=== PATIENT | male | born 1995 | race African-American/Black ===

== ENCOUNTER 2019-07-17 12:00 | Emergency (ER) | payer OTHER, SELFPAY ==
[2019-07-17 12:07] VITALS: BP 125/75; PULSE 74; RESP 17; TEMP 36.7; O2SAT 98
[2019-07-17 12:10] VITALS: PULSE 74
--- NOTE | 2019-07-17 12:13 | DI.RAD.S_ITS ---
PROCEDURE: XR TOE LT MIN 2V INDICATIONS: 1st toe pain, s/p hyperflexed yesterday TECHNIQUE: 3 views of the left first toe(s) acquired. COMPARISON: None. FINDINGS: Bones: No fractures or dislocations. No suspicious bony lesions. Soft tissues: No suspicious soft tissue densities. IMPRESSION: Left first toe without acute osseous abnormalities or malalignment. If there are persistent symptoms or clinical suspicion for pathology, then repeat radiographs or advanced imaging (CT, MRI or bone scan) should be considered for further evaluation. Dictated by: Luis Alberto Pham M.D. on 07/17/2019 at 12:50 Approved by: Luis Alberto Pham M.D. on 07/17/2019 at 12:51
--- NOTE | 2019-07-17 12:15 | ED.EXTPRO ---
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 He states had injured yesterday by hyperflexing the affected toe during PT session. Patient reports the area has been mildly a swollen and tenderness to palpate. Pain increases with movement and weight-bearing. Patient has been using ice pack at home for swelling and this helped a bit with swelling and pain. Related Data Home Medications Medication Instructions Recorded Confirmed No Known Home Medications 07/17/19 07/17/19 Allergies Allergy/AdvReac Type Severity Reaction Status Date / Time No Known Drug Allergies Allergy Verified 07/17/19 12:09 Review of Systems <SILAS Marmolejo - Last Filed: 07/17/19 13:49> Review of Systems Narrative: General: Denies fever, chills, fatigue, malaise, sweats. HEENT: Denies sinus pain, ear pain, sore throat, difficulty swallowing, dizziness. Respiratory: Denies dyspnea, cough, wheezing, hemoptysis, sputum. Cardiovascular: Denies chest pain, palpitations, orthopnea, edema. Gastrointestinal: Denies nausea, vomiting, abdominal pain, diarrhea, constipation, melena. : Denies dysuria, frequency, incontinence, hematuria, urinary retention. Musculoskeletal: See HPI Skin: Denies rash, skin lesions, or other. Neurologic: Denies weakness, headache, numbness, change in speech, confusion, seizures, incoordination. Psychiatric: No concerning psychosocial issues. 12-point review of systems is negative except for those stated above. Musculoskeletal Musculoskeletal: Reports as per HPI, Reports joint swelling, Reports limited range of motion and Reports stiffness PFSH <SILAS Marmolejo - Last Filed: 07/17/19 13:49> Medical History Healthy adult (Acute) Social History Smoking Status: Never smoker Social History (Updated 07/17/19 @ 12:19 by SILAS Marmolejo) Smoking Status: Never smoker Smokeless tobacco user: other substance use type: does not use Exam <SILAS Marmolejo - Last Filed: 07/17/19 13:49> Narrative Exam Narrative: GEN: Alert, oriented x 3, well appearing and nourished, and in no acute distress. Head: Normal cephalic, atraumatic. No scalp or temporal tenderness, palpable mass or rash. EYES: Pupils are equal, round, and reactive to light and accommodation. Extraocular muscles are intact bilaterally. There is no subconjunctival hemorrhage, exudate and sclera non-icteric. ENT: Bilateral auditory canals and tympanic membranes clear. Hearing grossly intact. Nose without bleeding, purulent discharge or deviation. Facial sinuses nontender to palpate. Mucous membrane moist, no mucosal lesion. Throat without erythema, tonsillar hypertrophy or exudate. Uvula in midline, airway patent. Neck: Trachea in midline. No JVD, non-tender without lymphadenopathy. No masses or thyroid megaly. Supple, non-tender and no meningeal signs. CARDIAC: Normal regular rate and rhythm without murmurs, gallops, or rubs. No chest wall tenderness. No peripheral edema, cyanosis or pallor. Capillary refill is less than 2 seconds. RESPIRATORY: Lungs are cleat to auscultate bilaterally. No cough, wheezes, rales, or rhonchi. No stridor, respiratory distress, increase work of breathing, or accessary muscle used. ABD: Abdomen soft, nontender and non-distended. No guarding or rebound tenderness to palpate. Bowel sounds are normal in all 4 quadrants. There is no palpable masses or organomegaly. SKIN: Warm, dry, normal color for patient. No erythema, lesions or rash over visible areas. BACK: Nontender without deformity or crepitance. No flank tenderness. NEUROLOGICAL: Alert and oriented to place, time and person. Sensation and motor function intact bilaterally. No facial droops, dysphasia. PSYCHIATRIC: Good judgement and reason, without hallucinations, abnormal affect or abnormal behaviors during the examination. Patient is not suicidal. Initial Vital Signs Initial Vital Signs: Vital Signs Temperature 98.0 F 07/17/19 12:07 Pulse Rate 74 07/17/19 12:07 Respiratory Rate 17 07/17/19 12:07 Blood Pressure 125/75 07/17/19 12:07 Pulse Oximetry 98 07/17/19 12:07 Extrem Left lower extremity: foot Details: normal capillary refill, tenderness Location: of the great toe Location: at the MTP joint, abnormal ROM of toe Details: pain with active ROM Location: of the great toe and pain with passive ROM Location: of the great toe, edema Location: of the great toe and vascular exam Details: dorsalis pedis pulse present; no unusual warmth, no ecchymosis and no crepitus <Zoe Marshall DO - Last Filed: 07/18/19 08:07> Initial Vital Signs Initial Vital Signs: Vital Signs Temperature 98.0 F 07/17/19 12:07 Pulse Rate 74 07/17/19 12:07 Respiratory Rate 17 07/17/19 12:07 Blood Pressure 125/75 07/17/19 12:07 Pulse Oximetry 98 07/17/19 12:07 Procedures <SILAS Marmolejo - Last Filed: 07/17/19 13:49> Orthopedic Splinting/Casting Injury #1: Side: left Lower Extremity Injury Location: toe (great toe) Lower Extremity Immobilizer: keren tape Course <SILAS Marmolejo - Last Filed: 07/17/19 13:49> Orders Ordered: Discontinued Medications Ibuprofen (Advil) 800 mg PO NOW ONE Stop: 07/17/19 12:14 Last Admin: 07/17/19 12:44 Dose: 800 mg Documented by: NIKO Vital Signs Vital signs: Vital Signs - 8 hr 07/17/19 12:07 07/17/19 12:10 07/17/19 13:00 Temperature 98.0 F Pulse Rate 74 67 Pulse Rate [Left Dorsalis Pedis] 74 Respiratory Rate 17 15 Blood Pressure 125/75 Blood Pressure [Left Arm] 154/106 H Pulse Oximetry 98 98 <Zoe Marshall DO - Last Filed: 07/18/19 08:07> Orders Ordered: Discontinued Medications Ibuprofen (Advil) 800 mg PO NOW ONE Stop: 07/17/19 12:14 Last Admin: 07/17/19 12:44 Dose: 800 mg Documented by: NIKO Vital Signs Vital signs: Vital Signs - 8 hr 07/17/19 12:07 07/17/19 12:10 07/17/19 13:00 Temperature 98.0 F Pulse Rate 74 67 Pulse Rate [Left Dorsalis Pedis] 74 Respiratory Rate 17 15 Blood Pressure 125/75 Blood Pressure [Left Arm] 154/106 H Pulse Oximetry 98 98 [facility] - Extremity (Nontraumatic) <SILAS Marmolejo - Last Filed: 07/17/19 13:49> Differential Diagnosis Differential diagnosis: Likely other (contusion/sprain to L great toe, fracture of L great toe) Medical Records Attestation: I reviewed the patient's medical records. Imaging Data XR- Great toe L: Attestation: I personally reviewed and interpreted this imaging study as follows: Radiologist's impression: [address] [address] XRay Report Signed Patient: Mohinder Livingston [facility]#: [id number] : 1995Acct:[id number] Age/Sex: 23 / MDate of Service: 07/17/19 Loc: ED Accession Number: [id number] Procedure: XR toe LT min 2V Ordering Provider: Jones Brandt PROCEDURE: XR TOE LT MIN 2V INDICATIONS: 1st toe pain, s/p hyperflexed yesterday TECHNIQUE: 3 views of the left first toe(s) acquired. COMPARISON: None. FINDINGS: Bones: No fractures or dislocations. No suspicious bony lesions. Soft tissues: No suspicious soft tissue densities. IMPRESSION: Left first toe without acute osseous abnormalities or malalignment. If there are persistent symptoms or clinical suspicion for pathology, then repeat radiographs or advanced imaging (CT, MRI or bone scan) should be considered for further evaluation. Dictated by: Luis Alberto Pham M.D. on 07/17/2019 at 12:50 Approved by: Luis Alberto Pham M.D. on 07/17/2019 at 12:51 [facility] Narrative Medical decision making narrative: Patient injured his left great toe by hyper-flexed yesterday. There was no acute findings per x-ray test today. Patient advised to use RICE therapy and affected toe was keren-taped. Patient advised to use [id number] Tylenol and/or Motrin as needed for discomfort. Advised to follow up with PCP if pain persists after 1 or 2 weeks for repeat x-ray test for occult fracture or etc. The findings were shared with the patient and patient has no further questions and agrees with treatment plan. Discharge Plan Departure Patient Disposition: Home Clinical Impression: Toe sprain Qualifiers: Encounter type: initial encounter Qualified Code(s): S93.509A - Unspecified sprain of unspecified toe(s), initial encounter Discharge Date/Time: 07/17/19 13:37 Instructions: DI for Toe Sprain Activity Restrictions/Additional Instructions: You have been diagnosed with [left great toe sprain in MTP joint. Please use RICE therapy. Use ice pack, [id number] Tylenol and/or Motrin as needed for discomfort and inflammation, use keren-taped as a splint. There was no fracture or dislocation per x-ray test today]. What to do: *Take your medications as directed. *Follow up with your primary care provider in 2-3 days, call for an appointment. Let them know you were seen in the ED and that we asked you to be seen in follow up. *Return to ED if you have any new, worsening, or concerning symptoms, such as [increasing pain, swelling, warmth, drainage, any acute concerns. If pain persists after a couple of weeks, you may need repeat x-ray test and re-evaluation]. Prescriptions: No Action No Known Home Medications RF: 0 Referrals: [facility] [Outside]
[2019-07-17] MEDS: IBUPROFEN 400 MG TABLET 800 MG PO (12:44)
[2019-07-17 13:00] VITALS: BP 154/106; PULSE 67; RESP 15; O2SAT 98
== END 2019-07-17 13:37 | disposition home or self-care (01) ==
PROVIDERS: Emergency Provider Nurse Practitioner Family
DX: S93.502A Unspecified sprain of left great toe, initial encounter (principal)
CPT/HCPCS: 73660; 99283

== ENCOUNTER → 2020-02-19 09:53 | Outpatient (CLI) | payer OTHER, SELFPAY ==
[2020-02-21 01:37] LABS: COVID19 Sendout Not Detected (Not Detected)
== END ==
PROVIDERS: Visit Provider Registered Nurse
DX: Z20.828 Contact with and (suspected) exposure to other viral communicable diseases (principal)
CPT/HCPCS: 87635

== ENCOUNTER 2021-01-19 19:47 | Emergency (ER) | payer OTHER, SELFPAY ==
[2021-01-19 19:53] VITALS: BP 137/78; PULSE 99; RESP 14; TEMP 36.6; O2SAT 99; BMI 26.6
--- NOTE | 2021-01-19 20:55 | PC.NURSE ---
patient has a vasectomy on . he has two day of pain medication. over the last 4 days hes been interacting with his small child at home and today he complains of pain in bot of his testes. He states that his testes are swollen and painful and that it's painful to pass gas now in his scrotum. On examination his scrotum is normal color, and slightly swollen. He has two bilateral surgical incisions that appear to be well approximated with sutures. Both surgical sites are free of noticeable redness, swelling, and drainage. He denies fever, chills, nausea, vomiting. He also denies changes in urination.
[2021-01-19] MEDS: OXYCODONE/ACETAMINOPHEN 5/325 TABLET 1 TAB PO (21:37)
--- NOTE | 2021-01-19 21:43 | ED.MALEGU ---
HPI - Male Genitourinary General Chief complaint: Urogenital-Male Stated complaint: Vesectomy, having pains Time Seen by Provider: 01/19/21 20:57 Source: patient Mode of arrival: Ambulatory Limitations: no limitations History of Present Illness HPI Narrative: Otherwise healthy 25-year-old gentleman who is 3 days postoperative from uncomplicated vasectomy. He has been doing some unplanned lifting, twisting, turning in caring for his young child and is experiencing increasing pain at the operative site more on the right than the left. Today he is having difficulty even walking which is more pain than he has experienced since the procedure self. He comes in for reassurance this time. No fevers, no dysuria. He notes that he is tender now off that he actually had a bit of pain with passing flatus today. Some low deep pelvic pain and when pulling or twisting has some pain radiating up into the right flank but otherwise unremarkable. Related Data Home Medications Medication Instructions Recorded Confirmed No Known Home Medications 07/17/19 07/17/19 Allergies Allergy/AdvReac Type Severity Reaction Status Date / Time No Known Drug Allergies Allergy Verified 01/19/21 19:53 Review of Systems Review of Systems Narrative: Otherwise reviewed and unremarkable. Patient History Medical History (Updated 01/19/21 @ 21:45 by Gem New MD) Healthy adult Surgical History (Updated 01/19/21 @ 21:45 by Gem New MD) H/O vasectomy Social History (Updated 07/17/19 @ 12:19 by SILAS Marmolejo) Smoking Status: Current every day smoker Smokeless tobacco user: other substance use type: does not use Smoking Status: Current every day smoker tobacco type: vaping alcohol intake frequency: a few times a week Alcohol type: beer Substance Use Type: does not use Exam Narrative Exam Narrative: General: Alert appropriate in no acute distress Respiratory: Able to speak in full sentences, no obvious respiratory distress Skin: No obvious rashes, warm and dry Neurologic: Grossly intact no obvious asymmetries or abnormalities Psych;appropriate insight and affect, cooperative Genitals: Nicely healing postoperative scar anterior portion of the scrotum. Minor swelling over the epididymis and proximally on the right side. Bedside ultrasound shows edema but no dramatic fluid accumulation and appropriate blood flow to the testes. Initial Vital Signs Initial Vital Signs: Vital Signs Temperature 97.9 F 01/19/21 19:53 Pulse Rate 99 H 01/19/21 19:53 Respiratory Rate 14 01/19/21 19:53 Blood Pressure 137/78 01/19/21 19:53 Pulse Oximetry 99 01/19/21 19:53 Course Orders Ordered: Discontinued Medications Oxycodone/Acetaminophen (Oxycodone/Acetaminophen 5/325 Tablet) 1 tab PO NOW ONE Stop: 01/19/21 21:06 Last Admin: 01/19/21 21:37 Dose: 1 tab Documented by: NOE Oxycodone/Acetaminophen (Oxycodone/Apap 5/325 Prepack) 1 bottle MISC SEEINSTR ONE Stop: 01/19/21 21:40 Vital Signs Vital signs: Vital Signs - 8 hr 01/19/21 19:53 Temperature 97.9 F Pulse Rate 99 H Respiratory Rate 14 Blood Pressure 137/78 Pulse Oximetry 99 MDM - Male Genitourinary MDM Narrative Medical decision making narrative: 25-year-old gentleman with postoperative pain after vasectomy due to a bit more moving, twisting, and lifting than probably should have been advised in the immediate postoperative period. Bedside ultrasound is reassuring. He is given a single Percocet in the emergency room with adequate pain control and additional for the a prepack to have for pain control over the next 24 hours. He is safe for home discharge Discharge Plan Departure Patient Disposition: Home Clinical Impression: Post-operative pain Instructions: DI for Postoperative Pain Activity Restrictions/Additional Instructions: Thank you for coming in today You are having some postoperative pain. The bedside ultrasound done in the emergency department shows no significant bleeding or complications. Please continue to use ice, compression and Tylenol for mild pain and 1 Tylenol and 1 Percocet for more severe pain over the next 1-2 days. If you feel that you are getting worse, please feel free to return to the emergency department Prescriptions: No Action No Known Home Medications RF: 0 Stand Alone Forms: Work Release Note
[2021-01-19] MEDS: OXYCODONE/APAP 5/325 PREPACK 1 BOTTLE MISC (21:46)
[2021-01-19 21:54] VITALS: BP 135/85; PULSE 82; RESP 14; O2SAT 99
== END 2021-01-19 21:56 | disposition home or self-care (01) ==
PROVIDERS: Emergency Provider Emergency Medicine
DX: G89.18 Other acute postprocedural pain (principal)
CPT/HCPCS: 99281; 99283

== ENCOUNTER 2022-08-04 22:04 | Emergency (ER) | payer OTHER, SELFPAY ==
[2022-08-04 22:09] VITALS: BP 133/84; PULSE 86; RESP 20; TEMP 36.9; O2SAT 99
[2022-08-04] MEDS: KETOROLAC 30 MG/ML VIAL IM (22:19)
--- NOTE | 2022-08-05 01:36 | ED_ITS ---
HPI - Back Pain/Injury General Chief Complaint: Back Pain/Injury Stated Complaint: stiff and sore back up to neck Time Seen by Provider: 08/05/22 01:33 Source: patient History of Present Illness HPI Narrative: 18-year-old male daily smoker without any chronic medical history presents for evaluation of a sharp and stabbing pain in his right upper back in the absence of any obvious injury or overuse. He states that the pain is worse when he moves his right arm, shoulder or turns his head to the right. He denies numbness, tingling or weakness. He states the pain is worse with motion and improves with rest. He is had no fever chills and denies blurred vision, trouble speech or numbness of extremities. He denies chest pain or shortness of breath. He is had no nausea, vomiting or diarrhea Related Data Previous Rx's Medication Instructions Recorded cyclobenzaprine 10 mg tablet 10 mg PO TID PRN muscle spasm #14 08/05/22 tabs ketorolac 10 mg tablet 10 mg PO Q6H PRN pain #14 tabs 08/05/22 lidocaine 5 % topical patch 1 patch topical DAILY #15 ea 08/05/22 (Lidoderm) Allergies Allergy/AdvReac Type Severity Reaction Status Date / Time No Known Drug Allergies Allergy Verified 01/19/21 19:53 Review of Systems Review of Systems Narrative: GENERAL: Denies chills, fatigue, malaise, fever, sweats. HEENT: Denies sinus pain, ear pain, sore throat, difficulty swallowing, dizziness. RESPIRATORY: Denies dyspnea, cough, wheezing, hemoptysis, sputum. CARDIOVASCULAR: Denies chest pain, palpitations, orthopnea, edema, GASTROINTESTINAL: Denies nausea, vomiting, abdominal pain, diarrhea, constipation, melena. : Denies dysuria, frequency, incontinence, hematuria, urinary retention. MUSCULOSKELETAL: See HPI SKIN: Denies rash, skin lesions, or other NEUROLOGIC: Denies weakness, headache, numbness, change in speech, confusion, seizures, incoordination. PSYCHIATRIC: No concerning psychosocial issues. 12 point review of systems is negative except for those stated above Patient History Medical History Healthy adult Surgical History H/O vasectomy Social History Smoking Status: Current every day smoker Smokeless tobacco user: other substance use type: does not use Smoking Status: Current every day smoker tobacco type: vaping alcohol intake frequency: a few times a week Alcohol type: beer Substance Use Type: does not use Exam Narrative Exam Narrative: GENERAL: [26] year old patient appears stated age. Well-developed patient, in mild distress. HEAD: Atraumatic. Normocephalic. EYES: Pupils equal round and reactive. Extraocular motions intact. No scleral icterus. No injection or drainage. ENT: Nose without bleeding, purulent drainage. Throat without erythema, tonsillar hypertrophy or exudate. Airway patent. NECK: pain on palpation of right sided paraspinal musculature. No change with axial load. B/L UE with 5/5 strength and no numbness or tingling CARDIOVASCULAR: Regular rate and rhythm without murmurs, gallops, or rubs. RESPIRATORY: Clear to auscultation. Breath sounds equal bilaterally. No wheezes, rales, or rhonchi. GASTROINTESTINAL: Abdomen soft, non-tender, nondistended. EXTREMITIES: increased pain in trapezius with motion of RUE. No measurable weakness. No deformity, swelling, erythema. BACK: Nontender without deformity or crepitance. No flank tenderness. NEURO: AOx3. SKIN: No rash or erythema of visible areas Initial Vital Signs Initial Vital Signs: Vital Signs Temperature 98.5 F 08/04/22 22:09 Pulse Rate 86 08/04/22 22:09 Respiratory Rate 20 08/04/22 22:09 Blood Pressure 133/84 08/04/22 22:09 Pulse Oximetry 99 08/04/22 22:09 Oxygen Delivery Method 08/04/22 22:09 Procedures Orthopedic Splinting/Casting Injury #1: Side: right Upper Extremity Injury Location: shoulder Upper Extremity Immobilizer: sling/shoulder immobilizer Post splinting neuro exam: intact Post splinting vascular exam: intact Placed by: Nursing Course Orders Ordered: Discontinued Medications Cyclobenzaprine HCl (Cyclobenzaprine 10 Mg Prepack) 1 bottle MISC SEEINSTR ONE Stop: 08/05/22 01:49 Last Admin: 08/05/22 02:09 Dose: 1 bottle Documented By: DKB Ketorolac Tromethamine (Ketorolac 30 Mg/Ml Vial) 30 mg IM NOW ONE Stop: 08/04/22 22:16 Last Admin: 08/04/22 22:19 Dose: 30 mg Documented By: GWEN Lidocaine (Lidocaine Patch 1 Each Adh..Patch) 1 each TOP NOW ONE Stop: 08/05/22 01:49 Last Admin: 08/05/22 02:09 Dose: 1 each Documented By: JAKOB Reevaluation(s) Reevaluation #1: Significant improvement after Toradol Vital Signs Vital signs: Vital Signs - 8 hr 08/04/22 22:09 08/05/22 02:20 Temperature 98.5 F Pulse Rate 86 67 Respiratory Rate 20 20 Blood Pressure 133/84 162/93 H Pulse Oximetry 99 99 Oxygen Delivery Method Room Air Room Air MDM - Back Pain/Injury MDM Narrative Medical decision making narrative: Reproducible pain in the absence of injury of the musculature of right trapezius and paraspinal musculature. No evidence of radiculopathy. No swelling or redness to suggest clot or infection. Improvement after anti-inflammatories. Most likely inflammation and or spasm. Patient given extensive return precautions and questions answered to his apparent satisfaction Discharge Plan Departure Patient Disposition: Home Clinical Impression: Trapezius strain Instructions: DI for Back Spasm Activity Restrictions/Additional Instructions: *You have been diagnosed with [ Right sided trapezius spasm] *What to do: *Please continue to take your regular medications as directed. [ x] New medication prescriptions sent to your pharmacy: [[facility] in [place] ] [ ] New medication written as a paper prescription [ ] No new medications given *Please follow up with your primary care provider in 2-3 days, call for an appointment. Let them know you were seen in the Emergency Department and that we ask that you be seen in follow up. We will electronically transmit a record of today's note if your PCP is in our system *Return to Emergency Department if you should have any new, worsening or concerning symptoms, such as [fever greater than 101 F, shaking chills, worsening pain, persistent vomiting or other bothersome symptoms] Prescriptions: New cyclobenzaprine 10 mg tablet 10 mg PO TID PRN (Reason: muscle spasm) Qty: 14 0RF ketorolac 10 mg tablet 10 mg PO Q6H PRN (Reason: pain) Qty: 14 0RF lidocaine [Lidoderm] 5 % adhesive patch,medicated 1 patch TOP DAILY Qty: 15 0RF Rx Instructions: leave on most painful area for 12 hrs Referrals: [facility] [Primary Care Provider] - Visit Report Forms: Patient Portal/API
[2022-08-05] MEDS: CYCLOBENZAPRINE 10 MG PREPACK 1 BOTTLE MISC (02:09)
[2022-08-05] MEDS: LIDOCAINE PATCH 1 EACH ADH..PATCH TOP (02:09)
[2022-08-05 02:20] VITALS: BP 162/93; PULSE 67; RESP 20; O2SAT 99
== END 2022-08-05 02:21 | disposition home or self-care (01) ==
PROVIDERS: Emergency Provider Emergency Medicine
DX: S29.012A Strain of muscle and tendon of back wall of thorax, initial encounter (principal)
CPT/HCPCS: 96372; 99283; J1885